=== PATIENT | female | born 1940 | race Caucasian/White ===

== ENCOUNTER → 2017-04-18 12:09 | Emergency (ER) | payer MEDICARE, OTHER ==
[~2017-04-18 12:09] MED LIST: NS 0.9% 1000 ML* 1,000 ML IV ONE
[2017-04-18 13:30] LABS: Urine Bilirubin Negative (Negative); Urine Glucose Negative (Negative); Urine Nitrite Negative (Negative)
[2017-04-18 13:31] LABS: Hematocrit 41 % (35-47); Hemoglobin 13.6 g/dl (12.0-16.0); Mean Corpuscular HGB Conc 33 g/dl (31-36); Mean Corpuscular Hemoglobin 31 pg (27-31); Mean Corpuscular Volume 95 fL (80-97); Mean Platelet Volume 7 um3 (7.4-10.4); Red Blood Count 4.33 10^6/ul (4.0-5.4); Red Cell Distribution Width 14 % (10.5-15)
[2017-04-18 13:47] LABS: Albumin 3.8 g/dL (3.2-5.2); BUN/Creatinine Ratio 34.8 (8-20); Calcium 8.4 mg/dL (8.6-10.3); EGFR African American 105.5 (>60); EGFR Non-African American 82.1 (>60); Globulin 2.6 g/dL (2-4); Magnesium 2.2 mg/dL (1.9-2.7); Potassium 4.1 mmol/L (3.5-5.0); Total Bilirubin 0.5 mg/dL (0.2-1.0); Total Protein 6.4 g/dL (6.4-8.9)
[2017-04-18 14:09] LABS: TSH (Thyroid Stimulating Horm) 0.57 mcIU/mL (0.34-5.60)
[2017-04-18 14:17] VITALS: BP 147/74
--- NOTE | 2017-04-18 14:21 | RAD ---
Indication: Syncope. Single frontal view of the chest performed at 1250 hours was reviewed. No prior study is available for comparison. No mediastinal shift is noted. Heart is of normal size and configuration. Lung rivero appear clear. IMPRESSION: NO ACTIVE CARDIOPULMONARY DISEASE IS NOTED.
--- NOTE | 2017-04-18 14:24 | ED ---
Shyanne Solorzano Rebecca, scribed for Sherrill Watson MD on 04/18/17 at 1238 . Syncope/Near Syncope - HPI Summary HPI Summary: Pt is a 77 y/o F BIBA who presents to ED s/p near syncopal episode. At approximately 1100 this morning she was at the [employer] when she suddenly felt near syncopal, described as "faint." Additionally c/o nausea during the episode. Negative LOC and all symptoms have completely resolved. Sx aggravated by nothing, alleviated by sitting on the ground. Denies vomiting, CP , SOB and dysuria. Confirms she had breakfast this morning but not as much water as usual. No recent illness. Two prior episodes of near syncope: one as a child and another in her 40s, both of which were triggered by suddenly entering sunlight. - History Of Current Complaint Chief Complaint: EDDizziness Time Seen by Provider: 04/18/17 12:16 Hx Obtained From: Patient Onset/Duration: Sudden Onset, Resolved Context: Witnessed - Negative LOC Associated Head Trauma: No Aggravating Factor(s): Nothing Alleviating Factor(s): Other - Sitting on the ground Associated Signs And Symptoms: Other - Nausea - resolved - Allergies/Home Medications Allergies/Adverse Reactions: Allergies Allergy/AdvReac Type Severity Reaction Status Date / Time Eggs or Egg-derived Products AdvReac Severe CRAMPS Verified 05/21/16 15:53 Gluten Meal AdvReac Severe "I FEEL Verified 05/21/16 15:53 LOUSY" DAIRY AdvReac Severe "I FEEL Uncoded 05/21/16 15:53 LOUSY" PMH/Surg Hx/FS Hx/Imm Hx Endocrine/Hematology History: Reports: Hx Thyroid Disease Denies: Hx Diabetes Cardiovascular History: Denies: Hx Hypertension Musculoskeletal History: Denies: Hx Osteoporosis - Surgical History Surgery Procedure, Year, and Place: TONSILLECTOMY; CATARACT REMOVAL Infectious Disease History: Yes Infectious Disease History: Reports: Hx Shingles Denies: Traveled Outside the [place] in Last 30 Days - Family History Known Family History: Positive: Hypertension Negative: Cardiac Disease Family History: hypothyroidism - Social History Lives: Al[place] - [place] Alcohol Use: None Substance Use Type: Reports: None Smoking Status (MU): Never Smoked Tobacco Review of Systems Negative: Chest Pain Negative: Shortness Of Breath Positive: Nausea - resolved. Negative: Vomiting Negative: dysuria Positive: Syncope - Near syncopal episode [employer] - resolved All Other Systems Reviewed And Are Negative: Yes Physical Exam - Summary Physical Exam Summary: General: Well appearing, no pain distress Skin: Warm, Lichenification patch of skin with mild erythema over her anterior leg, Dry Eyes: EOMI, AALIYAH ENT: Pharynx normal, TMs normal Neck: Supple, nontender Respiratory: CTA, breath sounds present, no rhonchi, no wheezes, no rales Cardiovascular: RRR, no murmur, no rub, no gallop Abdomen: Soft, nontender, Non-distended, no guarding, no rebound Bowel: Present Musculoskeletal: TERRI, No edema Neuro: Sensory/motor intact, A&Ox3, CN intact 2-12 Psych: Affect/mood appropriate Triage Information Reviewed: Yes Vital Signs On Initial Exam: Initial Vitals Temp Pulse Resp BP Pulse Ox 98.9 F 60 16 115/59 100 04/18/17 12:14 04/18/17 12:14 04/18/17 12:14 04/18/17 12:14 04/18/17 12:14 Vital Signs Reviewed: Yes Diagnostics - Vital Signs Vital Signs Temp Pulse Resp BP Pulse Ox 04/18/17 12:14 98.9 F 60 16 115/59 100 - Laboratory Lab Results: Lab Results 04/18/17 04/18/17 04/18/17 Range/Units 13:15 13:15 13:15 WBC 9.0 (3.5-10.8) 10^3/ul RBC 4.33 (4.0-5.4) 10^6/ul Hgb 13.6 (12.0-16.0) g/dl Hct 41 (35-47) % MCV 95 (80-97) fL MCH 31 (27-31) pg MCHC 33 (31-36) g/dl RDW 14 (10.5-15) % Plt Count 249 (150-450) 10^3/ul MPV 7 L (7.4-10.4) um3 Neut % (Auto) 69.1 (38-83) % Lymph % (Auto) 21.1 L (25-47) % [place] % (Auto) 7.0 (1-9) % Eos % (Auto) 2.2 (0-6) % Baso % (Auto) 0.6 (0-2) % Absolute Neuts (auto) 6.2 (1.5-7.7) 10^3/ul Absolute Lymphs (auto) 1.9 (1.0-4.8) 10^3/ul Absolute Monos (auto) 0.6 (0-0.8) 10^3/ul Absolute Eos (auto) 0.2 (0-0.6) 10^3/ul Absolute Basos (auto) 0.1 (0-0.2) 10^3/ul Absolute Nucleated RBC 0 10^3/ul Nucleated RBC % 0 Sodium 134 (133-145) mmol/L Potassium 4.1 (3.5-5.0) mmol/L Chloride 101 (101-111) mmol/L Carbon Dioxide 26 (22-32) mmol/L Anion Gap 7 (2-11) mmol/L BUN 24 (6-24) mg/dL Creatinine 0.69 (0.51-0.95) mg/dL Est GFR ( Amer) 105.5 (>60) Est GFR (Non-Af Amer) 82.1 (>60) BUN/Creatinine Ratio 34.8 H (8-20) Glucose 95 (70-100) mg/dL Lactic Acid (0.5-2.0) mmol/L Calcium 8.4 L (8.6-10.3) mg/dL Magnesium 2.2 (1.9-2.7) mg/dL Total Bilirubin 0.50 (0.2-1.0) mg/dL AST 20 (13-39) U/L ALT 19 (7-52) U/L Alkaline Phosphatase 52 (34-104) U/L Troponin I 0.00 (<0.04) ng/mL Total Protein 6.4 (6.4-8.9) g/dL Albumin 3.8 (3.2-5.2) g/dL Globulin 2.6 (2-4) g/dL Albumin/Globulin Ratio 1.5 (1-3) TSH 0.57 (0.34-5.60) mcIU/mL Urine Color Straw Urine Appearance Clear Urine pH 7.0 (5-9) Ur Specific [place] 1.012 (1.010-1.030) Urine Protein Negative (Negative) Urine Ketones Trace H (Negative) Urine Blood Negative (Negative) Urine Nitrate Negative (Negative) Urine Bilirubin Negative (Negative) Urine Urobilinogen Negative (Negative) Ur Leukocyte Esterase Negative (Negative) Urine Glucose Negative (Negative) 04/18/17 Range/Units 13:15 WBC (3.5-10.8) 10^3/ul RBC (4.0-5.4) 10^6/ul Hgb (12.0-16.0) g/dl Hct (35-47) % MCV (80-97) fL MCH (27-31) pg MCHC (31-36) g/dl RDW (10.5-15) % Plt Count (150-450) 10^3/ul MPV (7.4-10.4) um3 Neut % (Auto) (38-83) % Lymph % (Auto) (25-47) % [place] % (Auto) (1-9) % Eos % (Auto) (0-6) % Baso % (Auto) (0-2) % Absolute Neuts (auto) (1.5-7.7) 10^3/ul Absolute Lymphs (auto) (1.0-4.8) 10^3/ul Absolute Monos (auto) (0-0.8) 10^3/ul Absolute Eos (auto) (0-0.6) 10^3/ul Absolute Basos (auto) (0-0.2) 10^3/ul Absolute Nucleated RBC 10^3/ul Nucleated RBC % Sodium (133-145) mmol/L Potassium (3.5-5.0) mmol/L Chloride (101-111) mmol/L Carbon Dioxide (22-32) mmol/L Anion Gap (2-11) mmol/L BUN (6-24) mg/dL Creatinine (0.51-0.95) mg/dL Est GFR ( Amer) (>60) Est GFR (Non-Af Amer) (>60) BUN/Creatinine Ratio (8-20) Glucose (70-100) mg/dL Lactic Acid 0.6 (0.5-2.0) mmol/L Calcium (8.6-10.3) mg/dL Magnesium (1.9-2.7) mg/dL Total Bilirubin (0.2-1.0) mg/dL AST (13-39) U/L ALT (7-52) U/L Alkaline Phosphatase (34-104) U/L Troponin I (<0.04) ng/mL Total Protein (6.4-8.9) g/dL Albumin (3.2-5.2) g/dL Globulin (2-4) g/dL Albumin/Globulin Ratio (1-3) TSH (0.34-5.60) mcIU/mL Urine Color Urine Appearance Urine pH (5-9) Ur Specific [place] (1.010-1.030) Urine Protein (Negative) Urine Ketones (Negative) Urine Blood (Negative) Urine Nitrate (Negative) Urine Bilirubin (Negative) Urine Urobilinogen (Negative) Ur Leukocyte Esterase (Negative) Urine Glucose (Negative) Result Diagrams: 04/18/17 13:15 04/18/17 13:15 Lab Statement: Any lab studies that have been ordered have been reviewed, and results considered in the medical decision making process. - Radiology CXR Xray Interpretation: No Acute Changes - NO ACTIVE CARDIOPULMONARY DISEASE IS NOTED. Radiology Interpretation Completed By: Radiologist - EKG 1242 Cardiac Rate: Bradycardia - 59 bpm EKG Rhythm: Sinus Bradycardia EKG Interpretation: No STEMI Re-Evaluation - Re-Evaluation First Eval Re-Evaluation Time: 14:13 Comment: Discussed D/C plan with the pt. Course/Dx Course Of Treatment: long talk with pt symptoms did not seem vago vasal in etiology and so the idea that this could be electrical for the heart with skipped beats was brought up, she understands that there is a big risk she could do the same again but does want to go home and will be safe keeping cell phone with her and having family members check on her and will do close f/u with pmd - Diagnoses Provider Diagnoses: Near syncope Discharge - Discharge Plan Condition: Stable Disposition: HOME Patient Education Materials: Near Syncope (ED) Referrals: Ihsan Limon MD [Primary Care Provider] - 3 Days The documentation as recorded by the Shyanne gomez Rebecca accurately reflects the service I personally performed and the decisions made by me, Sherrill Watson MD.
== END | disposition home or self-care (01) ==
LOC: ED 12:09
DX: R55 Syncope and collapse (principal); R00.1 Bradycardia, unspecified; R11.0 Nausea
CPT/HCPCS: 36415; 71010; 80053; 81003; 83605; 83735; 84443; 84484; 85025; 93005; 99283